=== PATIENT | male | born 1995 | race Two or more races ===

== ENCOUNTER 2021-05-16 06:13 | Emergency (ER) | payer SELFPAY ==
[~2021-05-16] VITALS: Ht 175.3 cm; Wt 70.3 kg
[2021-05-16 06:36] VITALS: BP 124/72
== END 2021-05-16 07:02 | disposition home or self-care (01) ==
LOC: ER 06:15
DX: F10.10 Alcohol abuse, uncomplicated (principal); Y90.9 Presence of alcohol in blood, level not specified